=== PATIENT | female | born 1990 | race Caucasian/White ===

== ENCOUNTER 2017-04-24 11:53 | Emergency (ER) | payer BC ==
[~2017-04-24 11:53] MED LIST: ATIVAN1 M2 PO; IBUPROFEN800 M1 PO; LITHOBID300 M1 PO; MAGNESIUM400 M1; PRENATAL VITAM1 EA12; PRISTIQ ER50 MG PO; VITAMIN D5000 UNI1
[2017-04-24] MEDS ORDERED: ZOLOFT100 M1 PO (12:05)
[2017-04-24] MEDS ORDERED: BCP (12:06)
[2017-04-24] MEDS ORDERED: LAMICTAL25 M2 PO (12:06)
[2017-04-24] MEDS ORDERED: TRAZODONE HCL100 M1 PO (12:06)
[2017-04-24 13:23] LABS: PREGNANCY-SERUM NEGATIVE (NEGATIVE)
[2017-04-24 13:32] LABS: URINE BILIRUBIN NEGATIVE (NEG); URINE BLOOD SMALL (NEG); URINE GLUCOSE (UA) NEGATIVE (NEG); URINE KETONE NEGATIVE (NEG); URINE LEUKOCYTE ESTERASE NEGATIVE (NEG); URINE NITRITE NEGATIVE (NEG); URINE PROTEIN NEGATIVE (NEG)
[2017-04-24 13:34] LABS: ANION GAP 11 mmol/L (0-20); BLOOD UREA NITROGEN 15 mg/dl (6-24); CALCIUM 9.2 mg/dl (8.5-10.5); CARBON DIOXIDE-VENOUS 27 mmol/L (22-32); CHLORIDE 104 mmol/l (96-110); CREATININE 0.95 mg/dl (0.50-1.10); GLUCOSE 90 mg/dL (70-110); POTASSIUM 4.3 mmol/L (3.7-5.1); SODIUM 138 mmol/L (135-145); eGFR VALUE FOR BLACK >90 mL/Min
[2017-04-24 13:38] LABS: URINE APPEARANCE CLEAR; URINE COLOR YELLOW
[2017-04-24 13:40] LABS: URINE WBC 0-2 /[HPF] (0-5)
== END 2017-04-24 13:52 ==
LOC: EDMED 11:53
PROVIDERS: Emergency Medicine
DX: R56.9 Unspecified convulsions (principal); F32.9 Major depressive disorder, single episode, unspecified; Z79.899 Other long term (current) drug therapy